=== PATIENT | female | born 1960 | race Caucasian/White ===

== ENCOUNTER 2017-05-03 21:35 | Emergency (ER) | payer BC ==
[2017-05-03] MEDS ORDERED: Acetaminophen/HYDROcodone 325-10 MG Tab PO ONE (23:26)
--- NOTE | 2017-05-03 23:30 | EDM.PDOC ---
ED HPI GENERAL MEDICAL PROBLEM - General Chief Complaint: Respiratory Problem Time Seen by Provider: 05/03/17 23:27 Source of Information: Reports: Patient History Limitations: Reports: No Limitations - History of Present Illness INITIAL COMMENTS - FREE TEXT/NARRATIVE: states was sitting watching TV when right anterior chest started hurting, had lung CA in right lung but never got this bad. takes tramadol for pain but not working. been coughing on-off and is concerned with pneumonia. denies F/C. Left Middle Back Pain Score (Numeric/FACES): 10 - Related Data Allergies Allergy/AdvReac Type Severity Reaction Status Date / Time infliximab [From Remicade] Allergy Rash Verified 05/03/17 22:07 Sulfa (Sulfonamide Allergy Rash Verified 05/03/17 22:07 Antibiotics) Home Meds: Home Meds Cholecalciferol (Vitamin D3) [Vitamin D3] 1,000 mg PO BID 02/03/15 [History] DULoxetine [Cymbalta] 60 mg PO DAILY 02/03/15 [History] Folic Acid/Multivit-Min/Lutein [Centrum Silver Chewable Tablet] 1 tab PO DAILY 02/03/15 [History] Krill/Om-3/DHA/EPA/Phospho/Ast [Krill Oil 500 mg Softgel] 500 mg PO BID [History] Methotrexate Sodium [Methotrexate] 15.5 mg PO ASDIRECTED 02/03/15 [History] Nortriptyline 10 mg PO BEDTIME 02/03/15 [History] Simvastatin [Simvastatin] 40 mg PO BEDTIME 02/03/15 [History] diphenhydrAMINE [Benadryl] 25 mg PO BEDTIME 02/03/15 [History] Apremilast [Otezla] 30 mg PO BID 05/03/17 [History] Zolpidem [Ambien] 10 mg PO DAILY 05/03/17 [History] Past Medical History HEENT History: Reports: Impaired Vision Other HEENT History: wears glasses Respiratory History: Reports: Bronchitis, Recurrent 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: Musculoskeletal History: Reports: Arthritis, Fibromyalgia Neurological History: Reports: Migraines Psychiatric History: Reports: Depression Hematologic History: Reports: Anemia Oncologic (Cancer) History: Reports: Lung - Past Surgical History Respiratory Surgical History: Reports: Lung Biopsies GI Surgical History: Reports: Cholecystectomy Musculoskeletal Surgical History: Reports: Hip Replacement Social & Family History - Family History Family Medical History: Noncontributory - Tobacco Use Smoking Status *Q: Former Smoker Years of Tobacco use: 35 Packs/Tins Daily: 2 Used Tobacco, but Quit: Yes Month Tobacco Last Used: dec Second Hand Smoke Exposure: Yes - Caffeine Use Caffeine Use: Reports: None - Recreational Drug Use Recreational Drug Use: No ED ROS GENERAL - Review of Systems Review Of Systems: ROS reveals no pertinent complaints other than HPI. ED EXAM, GENERAL - Physical Exam Exam: See Below Exam Limited By: No Limitations General Appearance: Alert, WD/WN, Mild Distress, Moderate Distress, Other (pain upset) Ears: Hearing Grossly Normal Throat/Mouth: Normal Voice, No Airway Compromise Head: Atraumatic Neck: Non-Tender, Full Range of Motion Respiratory/Chest: No Respiratory Distress, No Accessory Muscle Use, Rhonchi, Wheezing. No: Decreased Breath Sounds, Retractions Cardiovascular: Regular Rate, Rhythm GI/Abdominal: Soft, Non-Tender Neurological: Alert, Oriented, Normal Cognition, Normal Gait, No Motor/Sensory Deficits Psychiatric: Normal Affect, Normal Mood Skin Exam: Warm, Dry, Normal Color Lymphatic: No Adenopathy Course - Vital Signs Last Recorded V/S: Last Vital Signs Temp 36.4 C 05/04/17 00:23 Pulse 115 H 05/04/17 00:23 Resp 16 05/04/17 00:23 BP 129/79 05/04/17 00:23 Pulse Ox 97 05/04/17 00:23 - Orders/Labs/Meds Orders: Active Orders 24 hr Category Date Time Status CULTURE BLOOD [BC] Stat Lab 05/03/17 23:26 Received Labs: Laboratory Tests 05/04/17 05/04/17 05/04/17 Range/Units 00:00 00:00 00:00 WBC 22.6 H (5.0-10.0) 10^3/uL RBC 4.00 L (4.2-5.4) 10^6/uL Hgb 11.9 L (12.0-16.0) g/dL Hct 36.2 L (37.0-47.0) % MCV 90.5 (80-100) fL MCH 29.8 (27.0-34.0) pg MCHC 32.9 L (33.0-35.0) g/dL Plt Count 268 (150-450) 10^3/uL Neut % (Auto) 84.2 H (42.2-75.2) % Lymph % (Auto) 8.0 L (20.5-50.1) % [place] % (Auto) 6.4 (2-8) % Eos % (Auto) 1.2 (1.0-3.0) % Baso % (Auto) 0.2 (0.0-1.0) % Add Manual Diff Yes Neutrophils % (Manual) 76 H (42-75) % Band Neutrophils % 11 % Lymphocytes % (Manual) 8 L (20-50) % Atypical Lymphs % 0 % Monocytes % (Manual) 2 (2-8) % Eosinophils % (Manual) 2 (1-3) % Basophils % (Manual) 1 Sodium 138 (135-145) mmol/L Potassium 3.9 (3.6-5.0) mmol/L Chloride 104 (101-111) mmol/L Carbon Dioxide 22.0 (21.0-31.0) mmol/L Anion Gap 15.9 BUN 19 H (7-18) mg/dL Creatinine 0.6 (0.6-1.3) mg/dL Est Cr Clr Drug Dosing 94.37 mL/min Estimated GFR (MDRD) > 60 BUN/Creatinine Ratio 31.66 Glucose 92 (74-105) mg/dL Lactic Acid 1.9 (0.5-2.2) mmol/L Calcium 9.5 (8.4-10.2) mg/dl Total Bilirubin 0.5 (0.2-1.0) mg/dL AST 23 (10-42) IU/L ALT 14 (10-60) IU/L Alkaline Phosphatase 99 (42-121) IU/L Troponin I < 0.02 (0.00-0.02) ng/ml Total Protein 7.1 (6.7-8.2) g/dl Albumin 4.2 (3.2-5.5) g/dl Globulin 2.9 Albumin/Globulin Ratio 1.45 Meds: Medications Discontinued Medications Generic Name Dose Route Start Last Admin Trade Name Freq PRN Reason Stop Dose Admin Hydrocodone Bitart/Acetaminophen 1 tab 05/03/17 23:26 05/03/17 23:41 [place] 325-10 Mg PO 05/03/17 23:27 1 tab ONETIME ONE Administration Ceftriaxone Sodium 1 gm 05/04/17 02:01 Rocephin IVPUSH 05/04/17 02:02 ONETIME ONE Lidocaine/Prilocaine 5 gm 05/03/17 23:31 05/03/17 23:41 [facility] 05/03/17 23:32 1 gr ONETIME ONE Administration Morphine Sulfate 1 mg 05/04/17 02:01 Morphine IVPUSH 05/04/17 02:02 ONETIME ONE Ondansetron HCl 4 mg 05/04/17 02:01 Zofran IV 05/04/17 02:02 ONETIME ONE - Re-Assessments/Exams Free Text/Narrative Re-Assessment/Exam: 05/04/17 02:[address] Fagan @ [facility] who kindly accepted pt. Departure - Departure Time of Disposition: 02:09 Disposition: DC/Tfer to Acute Hospital 02 Condition: Fair Clinical Impression: Pneumonia Qualifiers: Pneumonia type: due to unspecified organism Laterality: bilateral Lung location : lower lobe of lung Qualified Code(s): J18.9 - Pneumonia, unspecified organism Lung cancer Qualifiers: Laterality: right Lung location: lower lobe of lung Qualified Code(s): C34.31 - Malignant neoplasm of lower lobe, right bronchus or lung - Discharge Information Forms: Interfacility Transfer EMTALA - My Orders Last 24 Hours: My Active Orders 05/03/17 23:26 CULTURE BLOOD [BC] Stat - Assessment/Plan Last 24 Hours: My Active Orders 05/03/17 23:26 CULTURE BLOOD [BC] Stat
[2017-05-03] MEDS ORDERED: Lidocaine/Prilocaine 2.5-2.5% Crm 5 GM Tube TOP ONE (23:31)
[2017-05-04 00:29] LABS: ANION GAP 15.9; CHLORIDE,CL 104 mmol/L (101-111); SODIUM,NA 138 mmol/L (135-145)
[2017-05-04] MEDS ORDERED: cefTRIAXone 1 GM Vial IVPUSH ONE (02:01)
[2017-05-04] MEDS ORDERED: Morphine 2 MG/ML Syringe IVPUSH ONE (02:01)
[2017-05-04] MEDS ORDERED: Ondansetron 4 MG/2 ML SDV IV ONE (02:01)
[2017-05-04 02:35] VITALS: BP 126/77
== END 2017-05-04 02:40 ==
LOC: DL.ED 21:35
DX: J18.9 Pneumonia, unspecified organism (principal); C34.31 Malignant neoplasm of lower lobe, right bronchus or lung; Z88.2 Allergy status to sulfonamides; Z79.899 Other long term (current) drug therapy; Z87.891 Personal history of nicotine dependence
CPT/HCPCS: 36415; 71020; 80053; 83605; 84484; 85025; 87040; 96374; 96375; 99285; A9270; J0696; J2270; J2405

== ENCOUNTER 2017-08-04 12:32 | Inpatient (IN) | payer BC ==
[2017-08-04] MEDS ORDERED: Sodium Chloride 0.9% 10 ML Syringe FLUSH PRN (13:05)
[2017-08-04 13:47] LABS: CHLORIDE,CL 95 mmol/L (101-111); SODIUM,NA 126 mmol/L (135-145)
[2017-08-04] MEDS ORDERED: Sodium Chloride 0.9% 1,000 ML IV ONE (13:54)
[2017-08-04] MEDS ORDERED: Acetaminophen 325 MG Tab PO ONE (13:55)
[2017-08-04] MEDS ORDERED: Piperacillin/Tazobactam 3.375 GM in Sodium Chloride 0.9% 100 ML IV ONE (14:14)
--- NOTE | 2017-08-04 14:40 | EDM.PDOC ---
"Scribed by Leatha Kelly 08/04/17 1415 for Chantal Garduno NP ED HPI GENERAL MEDICAL PROBLEM - General Chief Complaint: Fever Stated Complaint: FEVER [id number] Time Seen by Provider: 08/04/17 13:15 Source of Information: Reports: Patient, Family, RN, RN Notes Reviewed History Limitations: Reports: No Limitations - History of Present Illness INITIAL COMMENTS - FREE TEXT/NARRATIVE: Patient presents to ER with complaint of fever since Saturday with highest fever of 104 today. Daughter states she doctors in [place] at [facility]. She has had cough, fever, chills, sweats and tremors. No sore throat, nausea, vomiting or diarrhea. She has had falls at home. Onset: Gradual Duration: Getting Worse Location: Reports: Generalized Quality: Reports: Ache Severity: Severe Improves with: Reports: None Worsens with: Reports: None Associated Symptoms: Reports: No Other Symptoms Right Hip Pain Score (Numeric/FACES): 8 - Related Data Allergies Allergy/AdvReac Type Severity Reaction Status Date / Time infliximab [From Remicade] Allergy Rash Verified 08/04/17 12:38 Sulfa (Sulfonamide Allergy Rash Verified 08/04/17 12:38 Antibiotics) Home Meds: Home Meds Cholecalciferol (Vitamin D3) [Vitamin D3] 1,000 mg PO BID 02/03/15 [History] DULoxetine [Cymbalta] 60 mg PO DAILY 02/03/15 [History] Folic Acid/Multivit-Min/Lutein [Centrum Silver Chewable Tablet] 1 tab PO DAILY 02/03/15 [History] Krill/Om-3/DHA/EPA/Phospho/Ast [Krill Oil 500 mg Softgel] 500 mg PO BID [History] Methotrexate Sodium [Methotrexate] 15.5 mg PO ASDIRECTED 02/03/15 [History] Nortriptyline 10 mg PO BEDTIME 02/03/15 [History] Simvastatin 40 mg PO BEDTIME 02/03/15 [History] diphenhydrAMINE [Benadryl] 25 mg PO BEDTIME 02/03/15 [History] Apremilast [Otezla] 30 mg PO BID 05/03/17 [History] Zolpidem [Ambien] 10 mg PO DAILY 05/03/17 [History] Past Medical History HEENT History: Reports: Impaired Vision Other HEENT History: wears glasses Cardiovascular History: Reports: High Cholesterol Respiratory History: Reports: Bronchitis, Recurrent, Other (See Below) (Stage IV lung cancer. 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: Musculoskeletal History: Reports: Arthritis, Fibromyalgia Neurological History: Reports: Migraines Psychiatric History: Reports: Depression Hematologic History: Reports: Anemia Oncologic (Cancer) History: Reports: Lung - Past Surgical History Respiratory Surgical History: Reports: Lung Biopsies, Other (See Below) Other Respiratory Surgeries/Procedures: Stage 4 Lung CA GI Surgical History: Reports: Cholecystectomy Female Surgical History: Reports: Hysterectomy Musculoskeletal Surgical History: Reports: Hip Replacement (right) Social & Family History - Family History Family Medical History: Noncontributory - Tobacco Use Smoking Status *Q: Former Smoker Years of Tobacco use: 35 Packs/Tins Daily: 2 Used Tobacco, but Quit: Yes Month/Year Tobacco Last Used: ? Second Hand Smoke Exposure: Yes - Caffeine Use Caffeine Use: Reports: None - Recreational Drug Use Recreational Drug Use: No ED ROS GENERAL - Review of Systems Review Of Systems: ROS reveals no pertinent complaints other than HPI. ED EXAM, SEPSIS - Physical Exam Exam: See Below Exam Limited By: No Limitations General Appearance: Lethargic, Other (pale) Eye Exam: Bilateral Eye: Normal Inspection Ears: Normal External Exam, Normal Canal, Hearing Grossly Normal, Normal TMs Nose: Normal Inspection, Normal Mucosa, No Blood Throat/Mouth: Normal Inspection, Normal Lips, Normal Teeth, Normal Gums, Normal Oropharynx, Normal Voice, No Airway Compromise Head: Atraumatic, Normocephalic Neck: Normal Inspection, Supple, Non-Tender, Full Range of Motion Respiratory/Chest: Rales (throughout) Cardiovascular: Normal Peripheral Pulses, Regular Rate, Rhythm, No Edema, No Gallop, No JVD, No Murmur, No Rub GI/Abdominal Exam: Normal Bowel Sounds, Soft, Non-Tender, No Organomegaly, No Distention, No Abnormal Bruit, No Mass, Pelvis Stable (Female) Exam: Deferred Rectal (Female) Exam: Deferred Back: Normal Inspection, Full Range of Motion, NT Extremities: Normal Inspection, Normal Range of Motion, Non-Tender, No Pedal Edema, Normal Capillary Refill Neurological: Other (confused) Psychiatric: Normal Affect, Normal Mood Skin: Other (pale and hot.) Lymphatic: Bilateral: No Adenopathy Course - Vital Signs Last Recorded V/S: Last Vital Signs Temp 103.7 F H 08/04/17 12:42 Pulse 130 H 08/04/17 12:42 Resp 20 08/04/17 12:42 BP 105/64 08/04/17 12:42 Pulse Ox 96 08/04/17 12:42 - Orders/Labs/Meds Orders: Active Orders 24 hr Category Date Time Status Peripheral IV Care [RC] . DIRECTED Care 08/04/17 13:06 Active CULTURE BLOOD [BC] Stat Lab 08/04/17 13:14 Received CULTURE BLOOD [BC] Stat Lab 08/04/17 13:19 Received UA W/MICROSCOPIC [URIN] Stat Lab 08/04/17 12:47 Ordered Blood Culture x2 Reflex Set [OM.PC] Stat Oth 08/04/17 13:05 Ordered Peripheral IV Insertion Adult [OM.PC] Stat Oth 08/04/17 13:05 Ordered Labs: Laboratory Tests 08/04/17 08/04/17 08/04/17 Range/Units 12:47 13:14 13:14 WBC 2.4 L (5.0-10.0) 10^3/uL RBC 2.75 L (4.2-5.4) 10^6/uL Hgb 7.7 L D (12.0-16.0) g/dL Hct 22.7 L (37.0-47.0) % MCV 82.5 D (80-100) fL MCH 28.0 (27.0-34.0) pg MCHC 33.9 (33.0-35.0) g/dL Plt Count 82 L D (150-450) 10^3/uL Neut % (Auto) 78.8 H (42.2-75.2) % Lymph % (Auto) 2.5 L (20.5-50.1) % [place] % (Auto) 17.9 H (2-8) % Eos % (Auto) 0.4 L (1.0-3.0) % Baso % (Auto) 0.4 (0.0-1.0) % Sodium 126 L D (135-145) mmol/L Potassium 3.6 (3.6-5.0) mmol/L Chloride 95 L (101-111) mmol/L Carbon Dioxide 22.0 (21.0-31.0) mmol/L Anion Gap 12.6 BUN 12 (7-18) mg/dL Creatinine 0.5 L (0.6-1.3) mg/dL Est Cr Clr Drug Dosing 114.40 mL/min Estimated GFR (MDRD) > 60 BUN/Creatinine Ratio 24.00 Glucose 120 H (74-105) mg/dL Lactic Acid (0.5-2.2) mmol/L Calcium 8.0 L D (8.4-10.2) mg/dl Total Bilirubin 0.2 (0.2-1.0) mg/dL AST 22 (10-42) IU/L ALT 17 (10-60) IU/L Alkaline Phosphatase 57 (42-121) IU/L Total Protein 5.9 L (6.7-8.2) g/dl Albumin 2.9 L (3.2-5.5) g/dl Globulin 3.0 Albumin/Globulin Ratio 0.97 Urine Color Yellow (YELLOW) Urine Appearance Clear (CLEAR) Urine pH 6.0 (5.0-9.0) Ur Specific [place] 1.010 (1.005-1.030) Urine Protein Negative (NEGATIVE) Urine Glucose (UA) Negative (NEGATIVE) Urine Ketones Negative (NEGATIVE) Urine Occult Blood Negative (NEGATIVE) Urine Nitrite Negative (NEGATIVE) Urine Bilirubin Negative (NEGATIVE) Urine Urobilinogen 0.2 (0.2-1.0) mg/dL Ur Leukocyte Esterase Negative (NEGATIVE) Urine RBC 0-5 /HPF Urine WBC 5-10 H (0-5/HPF) /HPF Ur Epithelial Cells Few /HPF Urine Bacteria Few (0-FEW/HPF) /HPF Urine Mucus Many H /LPF 08/04/17 Range/Units 13:14 WBC (5.0-10.0) 10^3/uL RBC (4.2-5.4) 10^6/uL Hgb (12.0-16.0) g/dL Hct (37.0-47.0) % MCV (80-100) fL MCH (27.0-34.0) pg MCHC (33.0-35.0) g/dL Plt Count (150-450) 10^3/uL Neut % (Auto) (42.2-75.2) % Lymph % (Auto) (20.5-50.1) % [place] % (Auto) (2-8) % Eos % (Auto) (1.0-3.0) % Baso % (Auto) (0.0-1.0) % Sodium (135-145) mmol/L Potassium (3.6-5.0) mmol/L Chloride (101-111) mmol/L Carbon Dioxide (21.0-31.0) mmol/L Anion Gap BUN (7-18) mg/dL Creatinine (0.6-1.3) mg/dL Est Cr Clr Drug Dosing mL/min Estimated GFR (MDRD) BUN/Creatinine Ratio Glucose (74-105) mg/dL Lactic Acid 0.8 (0.5-2.2) mmol/L Calcium (8.4-10.2) mg/dl Total Bilirubin (0.2-1.0) mg/dL AST (10-42) IU/L ALT (10-60) IU/L Alkaline Phosphatase (42-121) IU/L Total Protein (6.7-8.2) g/dl Albumin (3.2-5.5) g/dl Globulin Albumin/Globulin Ratio Urine Color (YELLOW) Urine Appearance (CLEAR) Urine pH (5.0-9.0) Ur Specific [place] (1.005-1.030) Urine Protein (NEGATIVE) Urine Glucose (UA) (NEGATIVE) Urine Ketones (NEGATIVE) Urine Occult Blood (NEGATIVE) Urine Nitrite (NEGATIVE) Urine Bilirubin (NEGATIVE) Urine Urobilinogen (0.2-1.0) mg/dL Ur Leukocyte Esterase (NEGATIVE) Urine RBC /HPF Urine WBC (0-5/HPF) /HPF Ur Epithelial Cells /HPF Urine Bacteria (0-FEW/HPF) /HPF Urine Mucus /LPF Influenza: A and B: Negative. Meds: Medications Discontinued Medications Generic Name Dose Route Start Last Admin Trade Name Freq PRN Reason Stop Dose Admin Acetaminophen 650 mg 08/04/17 13:55 08/04/17 13:59 Tylenol PO 08/04/17 13:56 650 mg NOW ONE Administration Sodium Chloride 1,000 mls @ 999 mls/hr 08/04/17 13:54 08/04/17 13:59 Normal Saline IV 08/04/17 14:54 999 mls/hr .BOLUS ONE Administration Piperacillin Sod/Tazobactam 100 mls @ 200 mls/hr 08/04/17 14:14 08/04/17 14: 27 Sod 3.375 gm/ Sodium Chloride IV 08/04/17 14:43 200 mls/hr ONETIME ONE Administration Sodium Chloride 10 ml 08/04/17 13:05 08/04/17 13:14 Saline Flush FLUSH 10 ml ASDIRECTED PRN Administration Keep Vein Open - Radiology Interpretation Free Text/Narrative:: Chest xray: IMPRESSION: Findings consistent with right upper and left lower lobe pneumonia. Thank you for allowing us to participate in the care of your patient. DONOVAN RAINES | Final Radiology Report CONFIDENTIALITY STATEMENT This report is intended only for use by the referring physician, and only in accordance with law. If you received this in error, call [phone]. Page 2 of 2 Dictated and Authenticated by: Rabia Joe MD 08/04/2017 2:30 PM Central Time ([place] & [place]) See rad report Departure - Departure Time of Disposition: 14:15 Disposition: Admitted As Inpatient 67 Condition: Poor Clinical Impression: Confusion, Hyponatremia, Hypochloremia Stage 4 lung cancer Qualifiers: Laterality: unspecified laterality Qualified Code(s): C34.90 - Malignant neoplasm of unspecified part of unspecified bronchus or lung Fever Qualifiers: Fever type: unspecified Qualified Code(s): R50.9 - Fever, unspecified Neutropenia Qualifiers: Neutropenia type: secondary to cancer chemotherapy Qualified Code(s): D70.1 - Agranulocytosis secondary to cancer chemotherapy; T45.1X5A - Adverse effect of antineoplastic and immunosuppressive drugs, initial encounter Anemia Qualifiers: Anemia type: unspecified type Qualified Code(s): D64.9 - Anemia, unspecified - Discharge Information Forms: ED Department Discharge - My Orders Last 24 Hours: My Active Orders 08/04/17 12:47 UA W/MICROSCOPIC [URIN] Stat 08/04/17 13:05 Blood Culture x2 Reflex Set [OM.PC] Stat Peripheral IV Insertion Adult [OM.PC] Stat 08/04/17 13:06 Peripheral IV Care [RC] . DIRECTED 08/04/17 13:14 CULTURE BLOOD [BC] Stat 08/04/17 13:19 CULTURE BLOOD [BC] Stat - Assessment/Plan Last 24 Hours: My Active Orders 08/04/17 12:47 UA W/MICROSCOPIC [URIN] Stat 08/04/17 13:05 Blood Culture x2 Reflex Set [OM.PC] Stat Peripheral IV Insertion Adult [OM.PC] Stat 08/04/17 13:06 Peripheral IV Care [RC] . DIRECTED 08/04/17 13:14 CULTURE BLOOD [BC] Stat 08/04/17 13:19 CULTURE BLOOD [BC] Stat I have read and agree with the documentation that has been completed regarding this visit. By signing this record, I attest that the documentation was completed in my physical presence and is an accurate record of the encounter."
[2017-08-04] MEDS ORDERED: Acetaminophen 325 MG Tab PO PRN (16:15)
[2017-08-04] MEDS ORDERED: Magnesium Hydroxide 400 MG/5 ML Susp 30 ML Cup PO PRN (16:15)
[2017-08-04] MEDS ORDERED: Albuterol/Ipratropium 3.0-0.5 MG/3 ML Neb Soln NEB PRN (16:15)
[2017-08-04] MEDS ORDERED: Polyethylene Glycol 3350 Powder 17 GM Packet PO PRN (16:15)
[2017-08-04] MEDS ORDERED: Ondansetron 4 MG Tab.DIS PO PRN (16:15)
[2017-08-04] MEDS ORDERED: Piperacillin/Tazobactam 3.375 GM in Sodium Chloride 0.9% 100 ML IV SCH ×2 (16:30→21:00)
[2017-08-04] MEDS ORDERED: Lidocaine 2% Viscous Solution 100 ML Bottle MUCMEM PRN (16:38)
[2017-08-04] MEDS ORDERED: Acetaminophen/HYDROcodone 325-10 MG Tab PO PRN (16:38)
[2017-08-04] MEDS ORDERED: Prochlorperazine 5 MG Tab PO PRN (16:45)
[2017-08-04] MEDS ORDERED: Azithromycin 500 MG in Sodium Chloride 0.9% 250 ML IV SCH (17:00)
[2017-08-04] MEDS ORDERED: Lidocaine 2% Viscous Solution 15 ML Cup ONE (17:21)
[2017-08-04] MEDS: Sodium Chloride 0.9% 1,000 ML IV SCH ×2 (17:28→20:51)
--- NOTE | 2017-08-04 18:10 | HP ---
CHIEF COMPLAINT: Fevers, chills, confusion. HISTORY OF PRESENTING ILLNESS: Mrs. 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 At this time, the patient complains of having fevers and chills in the last 2 days which have been progressively getting worse. She also complains of increasing weakness and tiredness where she is sleeping most of the day. She denies any headaches at this time. No complaints of chest pain. No complaints of shortness of breath. No complaints of abdominal pain. No complaints of diarrhea. The patient was noted to have temperature of 103. She denies any sick contacts. No recent travel. She complains of having cough, which is dry. No sputum production. The patient denied any history of chest pains on exertion. No history of dyspnea on exertion. No history of orthopnea or paroxysmal nocturnal dyspnea. The patient denied any history of hematemesis, hematochezia, or melenic stools. Normal bowel and bladder habits otherwise. REVIEW OF SYSTEMS: A complete review of system including skin, ear, nose, and throat, cardiovascular system, respiratory system, gastrointestinal system, genitourinary system, hematology, oncology, neurology, allergy, immunology, constitutional were all evaluated and were negative except for the above-said notes. PAST MEDICAL HISTORY: Significant for: 1. Psoriatic arthritis. 2. Recent diagnosis of neuroendocrine carcinoma of the lung with metastatic to the liver and also to the iliac bone. 3. History of pneumonia in the past. 4. Tobacco use. PAST SURGICAL HISTORY: Significant for: 1. Hysterectomy. 2. Cholecystectomy. 3. Total hip arthroplasty. 4. Teeth extraction. 5. Bronchoscopy with cryotherapy in the past. 6. ERCP. FAMILY HISTORY: Significant for psoriatic arthritis in her brother, hypertension and heart disease in her mother. SOCIAL HISTORY: The patient had history of smoking in the past, but quit smoking last year in December after she got diagnosed with lung cancer. No history of alcohol intake. ALLERGIES: The patient is noted to have allergies to: 1. Sulfasalazine. 2. Erythromycin. 3. Remicade. MEDICATIONS: Home medications include: 1. Tylenol 650 every 4 hours as needed for pain. 2. Benadryl 25 mg at bedtime. 3. Ambien 10 mg at bedtime. 4. Simvastatin 40 mg at bedtime. 5. Vitamin D3, 1000 units twice daily. 6. Cymbalta 60 mg at bedtime. 7. Folic acid with multivitamin 1 tablet daily. 8. Krill oil 500 mg softgel twice a day. 9. Nortriptyline 10 mg at bedtime. PHYSICAL EXAMINATION: Vital Signs: Temperature of 100.7, T-max of 103.7; pulse of 125; blood pressure of 100/48; respiratory rate of 20; saturating at 95%. General Appearance: The patient is well oriented to time, place, and person. Follows commands spontaneously. Cardiovascular System: S1 and S2 heard with normal intensity. No gallops. Respiratory System: Clear to auscultation bilaterally except for mild crepitations at the bases. No wheeze. Abdomen: Soft. Bowel sounds positive. Nontender. No rigidity. No guarding. No rebound tenderness. Extremities: No edema in bilateral lower extremities. Neurologic: No gross focal neurological deficits. LABORATORY DATA: WBC 2.4, hemoglobin 7.7, hematocrit 22.7, platelet count 82. Sodium 126, potassium 3.6, chloride 95, bicarb 22, BUN 12, creatinine 0.5, glucose 120, lactic acid 0.8, AST 22, ALT 17, alkaline phosphatase 57. Urinalysis negative for nitrites, negative for leukocyte esterase. Chest x-ray shows evidence of possible infiltrates in the left lower lobe. ASSESSMENT: 1. Pneumonia. 2. Pancytopenia. 3. Lung cancer, status post chemoradiation treatment. Lung cancer metastatic to the liver and also the iliac bone. 4. History of psoriatic arthritis. 5. Generalized weakness. 6. Hyponatremia. PLAN: 1. Pneumonia: The patient is noted to have pneumonia involving the left lower lobe. We will obtain blood cultures, sputum cultures. We will start her on broad-spectrum antibiotics. Given her neutropenic state, I will start her on Zosyn. We will follow the blood cultures and sputum cultures and titrate the antibiotics. 2. Possible sepsis: The patient is noted to have temperature of 103.7. She is tachycardic, tachypneic, and neutropenic, suggestive of possible sepsis. We will follow serial lactic acid. Her first set of lactic acid is normal. Keep her hydrated with IV fluids. 3. Hyponatremia: The patient is noted to have acute hyponatremia with sodium of 126. We will keep her hydrated with IV fluids. Recheck a basic metabolic panel in a.m. 4. Pancytopenia: The patient is noted to have neutropenia, anemia, thrombocytopenia. The patient is status post chemoradiation treatment. She had received Neupogen for 3 days as per the patient, 2 weeks back. We will recheck a CBC differential in a.m., given her increasing weakness, tiredness, shortness of breath. The patient is getting symptomatic from her anemia. We will transfuse at least 1 unit of packed red blood cells which will be leukoreduced and irradiated, given her history of chemotherapy and cancer. 5. DVT prophylaxis: Be cautious regarding heparin products secondary to thrombocytopenia. Her risk of bleeding is high. 6. Left lower extremity tenderness: The patient is noted to have tenderness in the left lower extremity, near the ankle. The patient claims that she fell down a few days back. We will get an x-ray of the left ankle to make sure there is no fracture which is less likely at this time. 7. Code status: The patient wants to be full code. Discussed with Chantal, ER physician, regarding the plan of care. Reviewed the labs and medications, reviewed the old charts and charts from [facility] over the Epic. [facility] /[id number]
[2017-08-04] MEDS ORDERED: Lidocaine 2% Viscous Solution 15 ML Cup MUCMEM PRN (18:15)
[2017-08-04] MEDS ORDERED: Sodium Chloride 0.9% 500 ML IV SCH (19:45)
[2017-08-04] MEDS ORDERED: DULoxetine 30 MG Cap PO SCH (21:00)
[2017-08-04] MEDS ORDERED: Cholecalciferol (Vitamin D3) 400 Unit Tab PO SCH (21:00)
[2017-08-04] MEDS ORDERED: Zolpidem 5 MG Tab PO SCH (21:00)
[2017-08-04] MEDS ORDERED: Simvastatin 40 MG Tab PO SCH (21:00)
[2017-08-04] MEDS ORDERED: diphenhydrAMINE 25 MG Tab PO SCH (21:00)
[2017-08-04] MEDS ORDERED: Nortriptyline 10 MG Cap PO SCH (21:00)
[2017-08-04] MEDS ORDERED: Sodium Chloride 0.9% 1,000 ML IV SCH (21:15)
[2017-08-04] MEDS ORDERED: Norepinephrine 4 MG in Dextrose 5% in Water 246 ML IV SCH ×2 (21:45)
[2017-08-04 23:07] VITALS: BP 110/43
--- NOTE | 2017-08-04 23:13 | DISCH ---
DATE OF SERVICE: 08/04/2017 ADMITTING DIAGNOSES: 1. Neutropenic fever. 2. Pneumonia. 3. Sepsis. DISCHARGE DIAGNOSES: 1. Sepsis with possible septic shock. 2. Pneumonia. 3. Neutropenic fever. 4. Anemia. HISTORY OF PRESENT ILLNESS: The patient was admitted to the hospital around 4:30 p.m. this afternoon with neutropenic fever, pneumonia, and possible sepsis, but this evening the patient got into complications with possible septic shock. she was noted to be Hypotensive with systolic blood pressures of 65. at this time patient will need Critical care admission for arterial line and central line placement with pressors. she will need higher level of care. she was stabilized with 2 L of IV fluid bolus and also started on Levophed drip. she is being transferred to [facility]. Discussed with Dr. Epps from Critical Care at [facility] in [place], [place], who has accepted the patient in transfer. The patient will be transferred by air ambulance to [facility]. She is discharged to [facility] in stable condition. PHYSICAL EXAMINATION: Vital Signs: On the time of discharge; temperature of 98, pulse of 107, blood pressure 106/42, respiratory rate of 20, saturating at 95%. General Appearance: The patient is well oriented to time, place, and person. Follows commands spontaneously. Cardiovascular System: S1 and S2 heard with normal intensity. No gallops. Respiratory System: Clear to auscultation bilaterally. No wheeze. No crepitations. Abdomen: Soft. Bowel sounds positive. Nontender. No rigidity. Extremities: No edema in bilateral lower extremities. [facility] /[id number] MTDD
[2017-08-05] MEDS ORDERED: Multivitamins, Therapeutic with Minerals Tab PO SCH (09:00)
== END 2017-08-04 22:45 | DRG 720 ==
LOC: DL.ED 12:32 → DL.MS 14:48 → UNDOADMIN 14:48 → DL.MS 16:16
PROVIDERS: ADMIT Internal Medicine; ATTEND Internal Medicine
PROC: 30233N1 Transfusion of Nonautologous Red Blood Cells into Peripheral Vein, Percutaneous Approach (ICD-10-PCS; principal; 2017-08-04)
DX: A41.9 Sepsis, unspecified organism (principal); R65.21 Severe sepsis with septic shock; J18.9 Pneumonia, unspecified organism; D61.810 Antineoplastic chemotherapy induced pancytopenia; T45.1X5A Adverse effect of antineoplastic and immunosuppressive drugs, initial encounter; C34.90 Malignant neoplasm of unspecified part of unspecified bronchus or lung; E87.1 Hypo-osmolality and hyponatremia; E87.8 Other disorders of electrolyte and fluid balance, not elsewhere classified; L40.50 Arthropathic psoriasis, unspecified; C79.51 Secondary malignant neoplasm of bone; C78.7 Secondary malignant neoplasm of liver and intrahepatic bile duct; M19.90 Unspecified osteoarthritis, unspecified site; H54.7 Unspecified visual loss; E78.00 Pure hypercholesterolemia, unspecified; M79.7 Fibromyalgia; F32.9 Major depressive disorder, single episode, unspecified; R50.81 Fever presenting with conditions classified elsewhere; Z90.49 Acquired absence of other specified parts of digestive tract; Z90.710 Acquired absence of both cervix and uterus; Z96.641 Presence of right artificial hip joint; Z87.891 Personal history of nicotine dependence; Z88.1 Allergy status to other antibiotic agents; Z88.2 Allergy status to sulfonamides; Z88.8 Allergy status to other drugs, medicaments and biological substances; Z79.899 Other long term (current) drug therapy
CPT/HCPCS: 36415; 71045; 80053; 81001; 83605; 85025; 86850; 86900; 86901; 87040; 87070; 87205; 87804; 96365; 99285; A9270-GY; J0456; J2543; J7030; J7050; J7060; Q0164